=== PATIENT | female | born 1940 | race Caucasian/White ===

== ENCOUNTER → 2016-07-20 | Outpatient (CLI) | payer MEDICARE ==
[~2016-07-20] MED LIST: ALBU2.5V12 IH; ALBU8.5H3 IH; ALPR0.254 PO; AMLO5TAB2 PO; BENA20TA2 PO; CYAN10005 PO; DICY10CA3 PO; ERGO400T PO; FLUT16SP NS; HYDR12.53 PO; HYDR1TAB PO; LEVO750T25 PO; MECL25TA3 PO; PANT40TA3 PO; PRED20TA PO; TIOT18CA IH
--- NOTE | 2016-07-20 14:56 | DIREP ---
PROCEDURE:CHEST 2 VIEWS COMPARISON:[facility], CT, CT-CHEST W CONTRAST, 03/26/2012, 01:28 PM. [facility], CR, XRAY CHEST SINGLE VW, 06/12/2016, 04:24 PM. [facility], CR, XRAY CHEST 2 VWS, 03/17/2015, 02:51 PM. INDICATIONS:R05 COUGH FINDINGS: LUNGS:Hyperinflation, biapical pleural thickening and chronic interstitial changes. Chronic thickening of the right posterior fissure. No focal infiltrate or pleural effusion. CARDIAC:Normal size cardiac silhouette, calcified tortuous aorta, and normal vascularity. MEDIASTINUM:Normal. BONES:Mild thoracic spondylosis. OTHER:No additional findings. CONCLUSION:COPD. No acute cardiopulmonary process or significant change. Dictated by: Malka Schrader MD on 07/20/2016 at 02:50 PM
== END | disposition home or self-care (01) ==
LOC: LAB 14:03
PROVIDERS: ATTEND Nurse Practitioner Family
DX: J44.9 Chronic obstructive pulmonary disease, unspecified (principal); M47.894 Other spondylosis, thoracic region
CPT/HCPCS: 71020

== ENCOUNTER → 2016-10-19 | Outpatient (CLI) | payer MEDICARE | END | disposition home or self-care (01) | LOC: LAB 11:21 | PROVIDERS: ATTEND Internal Medicine Cardiovascular Disease | DX: R60.0 Localized edema (principal) | CPT/HCPCS: 36415; 84436; 84443 ==

== ENCOUNTER 2017-03-25 16:24 | Emergency (ER) | payer MEDICARE ==
[~2017-03-25] VITALS: Ht 160 cm; Wt 59.0 kg
[~2017-03-25 16:24] MED LIST changes: -ALBU8.5H3 IH; +ALBU8.5H7 IH
--- NOTE | 2017-03-25 17:00 | PCM.EKG ---
[facility] Test Date: 2017-03-25 Test Time: 16:51:44 Pat Name: RIDDHI PHILLIPS Department: Room: Gender: F Carder Blankets: RAHEEM : 1940 Requested By: JODEE BENSON Order Number: [id number] Reading MD: Measurements Intervals [place] Rate: 80 P: 72 NC: 166 QRS: 70 QRSD: 78 T: 81 QT: 416 QTc: 479 Interpretive Statements Sinus rhythm with premature atrial complexes Otherwise normal ECG No previous ECG available for comparison Please click the below link to view image of tracing.
--- NOTE | 2017-03-25 17:00 | ER.PDOC ---
General Chief Complaint: Dizziness Stated Complaint: WEAKNESS TRAVEL OUT OF US: No Time seen by MD: 16:46 Source: patient, EMS Exam Limitations: no limitations History of Present Illness Initial Comments weak and dizzy called ems + hx of same Timing/Duration: 1 hour Severity: mild Associated Symptoms: denies symptoms Allergies: Coded Allergies: Sulfa (Sulfonamide Antibiotics) (Verified Allergy, Unknown, 06/29/15) morphine (Verified Allergy, Unknown, 06/29/15) Home Meds Active Scripts Levofloxacin (LEVAQUIN) 750 Mg Tablet, 500 MG PO DAILY, #5 Prov:AUGUSTO SAGASTUME MD 06/14/16 Prednisone (PREDNISONE) 20 Mg Tablet, 40 MG PO DAILY, #10 TABLET Prov:AUGUSTO SAGASTUME MD 06/14/16 Reported Medications Fluticasone Propionate (FLUTICASONE PROPIONATE) 16 Gm [place].susp, 16 GM NS DAILY 01/26/13 Benazepril Hcl (BENAZEPRIL HCL) 20 Mg Tablet, 20 MG PO DAILY 01/26/13 Pantoprazole Sodium (PROTONIX) 40 Mg Tablet.dr, 40 MG PO DAILY 01/26/13 Hydrocodone Bit/Acetaminophen (HYDROCODON-ACETAMINOPH 7.5-500) 1 Each Tablet, 1 EACH PO Q6HR 01/26/13 Alprazolam (ALPRAZOLAM) 0.25 Mg Tablet, 0.25 MG PO PRN 01/26/13 Tiotropium [place] (SPIRIVA) 18 Mcg Cap.w.dev, 18 MCG IH DAILY 01/26/13 Albuterol Sulfate (ALBUTEROL SULFATE) 2.5 Mg/0.5 Ml Vial.neb, 2.5 MG IH Q6HR 01/26/13 Meclizine Hcl (MECLIZINE HCL) 25 Mg Tablet, 25 MG PO TID 01/26/13 Albuterol Sulfate (PROAIR HFA) 8.5 Gm Hfa.aer.ad, 8.5 GM IH PRN 01/26/13 Amlodipine Besylate (AMLODIPINE BESYLATE) 5 Mg Tablet, 5 MG PO DAILY 01/26/13 Dicyclomine Hcl (DICYCLOMINE HCL) 10 Mg Capsule, 10 MG PO BID 01/26/13 Ergocalciferol (Vitamin D2) (VITAMIN D) 400 Unit Tablet, 400 UNIT PO DAILY 01/26/13 Cyanocobalamin (Vitamin B-12) (VITAMIN B-12) 1,000 Mcg Tablet, 1000 MCG PO MONTHLY 01/26/13 Hydrochlorothiazide (HYDROCHLOROTHIAZIDE) 12.5 Mg Capsule, 12.5 MG PO DAILY Y for edema 01/26/13 Past Medical History Medical History: hypertension Surgical History: back, cholecystectomy LMP (females 10-50): postmenopause Family History Significant Family History: no pertinent family hx Social History Smoking: non-smoker, quit greater than 1 year Alcohol Use: none Drug Use: none Review of Systems Constitutional: malaise EENTM: denies blurred vision Respiratory: denies cough Cardiovascular: denies chest pain Gastrointestinal: denies vomiting Musculoskeletal: denies back pain Psychiatric/Neurological: anxiety All Other Systems: Reviewed and Negative Physical Exam General Appearance: Anxious EENT: eyes nml inspection, nml ENT inspection Neck: Non-Tender, Full Range of Motion Respiratory: chest non-tender, lungs clear CVS: reg rate & rhythm, no murmur Gastrointestinal: Normal Bowel Sounds, No Organomegaly Extremities: Normal Range of Motion, Non-Tender 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 Skin: Normal Color, Warm/Dry Lymphatic: No Adenopathy, Axilla Node Tender (R) Results/Orders Results/Orders Laboratory Tests Test 03/25/17 17:06 White Blood Count 14.6 10^3/uL (4.5-11.0) Red Blood Count 3.81 10^6/uL (4.00-5.20) Hemoglobin 10.3 g/dL (12.0-15.0) Hematocrit 33.7 % (36.0-46.0) Mean Corpuscular Volume 88.5 fL (78-100) Mean Corpuscular Hemoglobin 27.0 pg (26-34) Mean Corpuscular Hemoglobin Concent 30.6 g/dL (33-37) Red Cell Distribution Width 14.7 % (11.5-14.5) Platelet Count 263 10^3/uL (150-400) Mean Platelet Volume 9.5 fL (7.8-11.0) Neutrophils (%) (Auto) 81.6 % (41.0-85.0) Lymphocytes (%) (Auto) 11.1 % (24.0-44.0) Monocytes (%) (Auto) 4.9 % (5.0-12.0) Neutrophils # (Auto) 11.9 10^3/uL (1.8-7.7) Lymphocytes # (Auto) 1.6 10^3/uL (1.0-4.8) Monocytes # (Auto) 0.7 10^3/uL (0.3-0.8) Absolute Immature Granulocyte (auto 0.04 10^3 u/L (0-2) Eosinophils % 1.7 % (0.0-5.0) Basophils % 0.4 % (0.0-0.2) Basophils # 0.1 10^3/uL (0.0-0.1) Eosinophil Count 0.3 10^3/uL (0.0-0.2) Sodium Level 139 mmol/L (132-145) Potassium Level 3.0 mmol/L (3.6-5.2) Chloride Level 101.0 mmol/L (96-109) Carbon Dioxide Level 30.7 mmol/L (20.0-32) Anion Gap 10.3 Blood Urea Nitrogen 11 mg/dL (7-18) Creatinine 1.34 mg/dL (0.59-1.40) Estimated GFR () 46.7 (>/=60) BUN/Creatinine Ratio 8.0 Glucose Level 113 mg/dL (70-110) Calcium Level 9.1 mg/dL (8.4-10.5) Total Bilirubin 0.6 mg/dL (0.2-1.0) Aspartate Amino Transf (AST/SGOT) 17 U/L (0-35) Alanine Aminotransferase (ALT/SGPT) 21 U/L (12-78) Alkaline Phosphatase 101 U/L (50-136) Total Creatine Kinase 255 U/L (26-192) Creatine Kinase MB 1.3 ng/mL (0.5-3.6) Troponin I < 0.02 ng/mL (0.00-0.05) Total Protein 7.0 g/dL (6.4-8.2) Albumin 3.7 g/dL (3.4-5.0) Globulin 3.3 Percent Immature Gran (Cell Imm) 0.30 % (0.00-0.50) Progress Progress k+= 3.o spoke with dr dickerson if pt can walk will d/c signed out to dr lantigua ay 2201 EKG/XRAY/CT/US XRAY: chest XRAY Comments: neg CT Comments: ct head neg Departure Time of Disposition: 19:00 Disposition: 30 STILL A PATIENT Impression: Primary Impression: Hypokalemia Condition: Stable Referrals: [facility] CASH ANALYST (PCP) PRIMARY CARE PROVIDER Duration or Time Spent with Pa: 30 JODEE BENSON MD Mar 25, 2017 17:00
[2017-03-25 17:10] LABS: BASOPHIL # 0.1 10^3/uL (0.0-0.1); BASOPHIL % 0.4 % (0.0-0.2); EOSINOPHIL # 0.3 10^3/uL (0.0-0.2); EOSINOPHIL % 1.7 % (0.0-5.0); HEMOGLOBIN 10.3 g/dL (12.0-15.0); LYMPHOCYTES # 1.6 10^3/uL (1.0-4.8); LYMPHOCYTES % 11.1 % (24.0-44.0); MEAN CELL HGB CONCENTRATION 30.6 g/dL (33-37); MEAN CORP VOLUME 88.5 fL (78-100); MEAN PLATELET VOLUME 9.5 fL (7.8-11.0); MONOCYTES # 0.7 10^3/uL (0.3-0.8); MONOCYTES % 4.9 % (5.0-12.0); NEUTROPHIL # 11.9 10^3/uL (1.8-7.7); NEUTROPHILS % 81.6 % (41.0-85.0); RED CELL DISTRIBUTION WIDTH 14.7 % (11.5-14.5); WHITE BLOOD CELL 14.6 10^3/uL (4.5-11.0)
--- NOTE | 2017-03-25 17:20 | DIREP ---
PROCEDURE:CHEST 1 VIEW COMPARISON:[facility], CR, XRAY CHEST 2 VWS, 07/20/2016, 01:53 PM. [facility], CR, XRAY CHEST SINGLE VW, 06/12/2016, 04:24 PM. [facility], CR, XRAY CHEST SINGLE VW, 11/08/2015, 02:02 PM. INDICATIONS:Short of breath FINDINGS: LUNGS/PLEURA:There is pulmonary hyperinflation consistent with underlying COPD. No focal consolidation. No effusions. VASCULATURE:Normal. Unremarkable pulmonary vasculature. CARDIAC:Normal. No cardiac silhouette abnormality or cardiomegaly. MEDIASTINUM:Normal. No visible mass or adenopathy. BONES:Normal. No fracture or visible bony lesion. OTHER:Negative. CONCLUSION:COPD. No definite acute cardiopulmonary abnormalities. Dictated by: Ulysses Ness M.D. on 03/25/2017 at 05:18 PM
[2017-03-25 17:36] LABS: ALANINE AMINOTRANSFERASE 21 U/L (12-78); ALKALINE PHOSPHATASE 101 U/L (50-136); ASPARTATE AMINO TRANSFERASE 17 U/L (0-35); CALCIUM 9.1 mg/dL (8.4-10.5); CARBON DIOXIDE 30.7 mmol/L (20.0-32); GLUCOSE 113 mg/dL (70-110)
--- NOTE | 2017-03-25 17:46 | DIREP ---
PROCEDURE:CT HEAD OR BRAIN W/O CONTRAST COMPARISON:[facility], CT, CT HEAD BRAIN W/O CONTRAST, 11/08/2015, 01:58 PM. INDICATIONS:syncope TECHNIQUE:CT images were created without intravenous contrast. FINDINGS: VENTRICLES:The ventricles are normal in size and configuration. CEREBRUM:Normal cerebral morphology with appropriate quesada white matter differentiation. CEREBELLUM:Negative. BRAINSTEM:Negative. BASAL CISTERNS:Negative. HEMORRHAGE:No MASS LESION:No ACUTE INFARCT:No SKULL:Normal. SINUSES:Normal. OTHER:None CONCLUSION:No acute abnormalities. There is no significant change as compared with the previous examination. Dictated by: Ulysses Ness M.D. on 03/25/2017 at 05:45 PM
--- NOTE | 2017-03-25 18:29 | NUR ---
DR TRELL MacdonaldAMARA TALKING ON PHONE WITH DR CAI.
--- NOTE | 2017-03-25 18:41 | NUR ---
UPDATE PROVIDED PT WITH WATER TO DRINK. PT RESTING ON RIGHT LATERAL SIDE IN BED. PT STATES NO OTHER CONCERNS AT THIS TIME.
[2017-03-25] MEDS ORDERED: NS 1000 ML/KCL 40MEQ 1,000 ML IV ONE ×2 (18:44→19:00)
--- NOTE | 2017-03-25 18:49 | NUR ---
verbal order maddy Sutherland to administer NS w/40meq Potassium at 250cc/hr.
--- NOTE | 2017-03-25 18:50 | NUR ---
HOME O2 PT STATES SHE USES HOME O2 PER NASAL CANNULA
--- NOTE | 2017-03-25 18:59 | NUR ---
TV TURNED ON TO CHANNEL 4 PER PT REQUEST TO WATCH "THE VOICE"
--- NOTE | 2017-03-25 19:52 | NUR ---
PT AMBULATED TO AND FROM THE BATHROOM.
--- NOTE | 2017-03-25 19:55 | NUR ---
UA COLLECTED AND TAKEN TO LAB
[2017-03-25 20:03] LABS: APPEARANCE,URINE CLEAR (CLEAR); BILIRUBIN,URINE NEGATIVE (NEGATIVE); UA COLOR DARK YELLOW (YELLOW); UROBILINOGEN,URINE NORMAL (NEGATIVE)
[2017-03-25 20:05] LABS: WBC,URINE 0-2 WBC/HPF (0-2)
--- NOTE | 2017-03-25 20:46 | NUR ---
DISCHARGE DISCHARGE INSTRUCTIONS DISCUSSED. PT VERBALIZED UNDERSTANDING. ENCOURAGED TO RETURN FOR ANY CONCERNS. PT REQUESTED HER DAUGHTER, OSIRIS, TO BE CONTACTED FOR A RIDE HOME.
--- NOTE | 2017-03-25 20:55 | NUR ---
SPOKE WITH PT'S DAUGHTER BY PHONE, DAUGHTER NOTIFIED OF PT'S REQUEST FOR RIDE HOME. DAUGHTER VERBALIZED SHE WOULD COME GET PT AT THE ER.
[2017-03-25 21:12] VITALS: BP 145/73
--- NOTE | 2017-03-25 21:13 | NUR ---
PT HOME WITH FAMILY MEMBER
== END 2017-03-25 20:46 | disposition home or self-care (01) ==
LOC: ER 16:24 → EDBD 16:24 → ER 20:46
DX: E87.6 Hypokalemia (principal); I10 Essential (primary) hypertension; R42 Dizziness and giddiness; Z90.49 Acquired absence of other specified parts of digestive tract; Z79.899 Other long term (current) drug therapy; Z87.891 Personal history of nicotine dependence; Z88.2 Allergy status to sulfonamides; Z88.5 Allergy status to narcotic agent
CPT/HCPCS: 36415; 70450; 71010; 80053; 81000; 82550; 82553; 84132; 84484; 85025; 93005; 96365; 99285; J3480

== ENCOUNTER → 2017-09-13 | Outpatient (CLI) | payer MEDICARE ==
--- NOTE | 2017-09-13 15:37 | DIREP ---
PROCEDURE:CHEST 2 VIEWS COMPARISON:[facility], CR, XRAY CHEST 2 VWS, 07/20/2016, 01:53 PM. [facility], CR, XRAY CHEST SINGLE VW, 03/25/2017, 04:56 PM. INDICATIONS:R05 COUGH FINDINGS: LUNGS/PLEURA:Hyperinflation with flattening of the diaphragm and mild increased retrosternal airspace. Mild interstitial thickening throughout the bilateral hemithoraces with relative paucity of lung markings within the left upper hemithorax. Findings are similar to the previous study and would suggest underlying COPD/emphysema. Subtle opacity within the right upper lobe appears fairly similar to the previous study and may reflect atelectasis, scarring or potential subtle infiltrate in the appropriate clinical setting. No pleural effusion or pneumothorax is identified. VASCULATURE:Normal. Unremarkable pulmonary vasculature. CARDIAC:Normal. No cardiac silhouette abnormality or cardiomegaly. MEDIASTINUM:Mediastinal contours are within normal limits with calcifications of the aorta. BONES:Minimal degenerative changes of the thoracic spine. No acute abnormality. OTHER:Previous cholecystectomy. CONCLUSION: 1. COPD/emphysema. Subtle opacity within the right upper lobe may reflect atelectasis, scarring or potential subtle infiltrate in the appropriate clinical setting. This does appear relatively similar to the previous studies from 03/25/2017 and 07/20/2016 which would favor atelectasis or scarring. Dictated by: Jimmie Ruiz M.D. On 09/13/2017 at 03:32 PM
== END | disposition home or self-care (01) ==
LOC: RAD 14:55
PROVIDERS: ATTEND Nurse Practitioner Family
DX: J44.9 Chronic obstructive pulmonary disease, unspecified (principal); M47.894 Other spondylosis, thoracic region; Z90.49 Acquired absence of other specified parts of digestive tract
CPT/HCPCS: 71046

== ENCOUNTER 2017-11-03 17:59 | Emergency (ER) | payer MEDICARE ==
[~2017-11-03] VITALS: Ht 165.1 cm; Wt 83.9 kg
[2017-11-03 18:05] VITALS: BP 187/97
--- NOTE | 2017-11-03 18:25 | PCM.EKG ---
[facility] Test Date: 2017-11-03 Test Time: 18:07:45 Pat Name: RIDDHI PHILLIPS Department: Room: Gender: F Counter Manager: : 1940 Requested By: EVA CLANCY Order Number: [id number] Reading MD: Eva CLANCY Measurements Intervals [place] Rate: 103 P: 84 MA: 166 QRS: 62 QRSD: 72 T: 73 QT: 360 QTc: 471 Interpretive Statements Sinus tachycardia with premature supraventricular complexes Otherwise normal ECG Compared to ECG 03/25/2017 16:51:44 Sinus rhythm no longer present Electronically Signed On 11-03-2017 18:47:34 CDT by Eva CLANCY Please click the below link to view image of tracing.
[2017-11-03] MEDS ORDERED: SUBLIMAZE IV STA (18:38)
[2017-11-03] MEDS ORDERED: TRANDATE IV STA (18:38)
--- NOTE | 2017-11-03 18:46 | ER.PDOC ---
General Chief Complaint: Chest Pain-Cardiac Nature Stated Complaint: CHEST PAIN Time seen by MD: 18:40 Source: patient Exam Limitations: no limitations History of Present Illness Initial Comments Mid lower retrosternal chest pain after choking while eating. Timing/Duration: 1 hour Severity/Quality: moderate Radiation: no radiation Prior CP/Workup: No Prior Chest Pain Nitro Today/Relief: 0.4 mg x 1 Aspirin Today: 325 mg x 1, Provided By EMS Associated Symptoms: denies symptoms Allergies: Coded Allergies: Sulfa (Sulfonamide Antibiotics) (Verified Allergy, Unknown, 06/29/15) morphine (Verified Allergy, Unknown, 06/29/15) Home Meds Active Scripts Levofloxacin (LEVAQUIN) 750 Mg Tablet, 500 MG PO DAILY, #5 Prov:AUGUSTO SAGASTUME MD 06/14/16 Prednisone (PREDNISONE) 20 Mg Tablet, 40 MG PO DAILY, #10 TABLET Prov:AUGUSTO SAGASTUME MD 06/14/16 Reported Medications Fluticasone Propionate (FLUTICASONE PROPIONATE) 16 Gm [place].susp, 16 GM NS DAILY 01/26/13 Benazepril Hcl (BENAZEPRIL HCL) 20 Mg Tablet, 20 MG PO DAILY 01/26/13 Pantoprazole Sodium (PROTONIX) 40 Mg Tablet.dr, 40 MG PO DAILY 01/26/13 Hydrocodone Bit/Acetaminophen (HYDROCODON-ACETAMINOPH 7.5-500) 1 Each Tablet, 1 EACH PO Q6HR 01/26/13 Alprazolam (ALPRAZOLAM) 0.25 Mg Tablet, 0.25 MG PO PRN 01/26/13 Tiotropium [place] (SPIRIVA) 18 Mcg Cap.w.dev, 18 MCG IH DAILY 01/26/13 Albuterol Sulfate (ALBUTEROL SULFATE) 2.5 Mg/0.5 Ml Vial.neb, 2.5 MG IH Q6HR 01/26/13 Meclizine Hcl (MECLIZINE HCL) 25 Mg Tablet, 25 MG PO TID 01/26/13 Albuterol Sulfate (PROAIR HFA) 8.5 Gm Hfa.aer.ad, 8.5 GM IH PRN 01/26/13 Amlodipine Besylate (AMLODIPINE BESYLATE) 5 Mg Tablet, 5 MG PO DAILY 01/26/13 Dicyclomine Hcl (DICYCLOMINE HCL) 10 Mg Capsule, 10 MG PO BID 01/26/13 Ergocalciferol (Vitamin D2) (VITAMIN D) 400 Unit Tablet, 400 UNIT PO DAILY 01/26/13 Cyanocobalamin (Vitamin B-12) (VITAMIN B-12) 1,000 Mcg Tablet, 1000 MCG PO MONTHLY 01/26/13 Hydrochlorothiazide (HYDROCHLOROTHIAZIDE) 12.5 Mg Capsule, 12.5 MG PO DAILY PRN for edema 01/26/13 Past Medical History Medical History: COPD, hypertension Surgical History: cardiac cath Social History Smoking: non-smoker Alcohol Use: none Drug Use: none Constitutional: no symptoms reported EENTM: no symptoms reported Respiratory: no symptoms reported Cardiovascular: see HPI Gastrointestinal: no symptoms reported Genitourinary: no symptoms reported Musculoskeletal: no symptoms reported All Other Systems: Reviewed and Negative Physical Exam General Appearance: No Apparent Distress, WD/WN HEENT: PERRL/EOMI, Normal ENT Inspection, TMs Normal, Pharynx Normal Neck: Non-Tender, Full Range of Motion, Supple, Normal Inspection Respiratory: chest non-tender, lungs clear, normal breath sounds, no respiratory distress, no accessory muscle use Cardiovascular: Normal Peripheral Pulses, Regular Rate, Rhythm, No Edema, No Gallop, No JVD, No Murmur Gastrointestinal: Normal Bowel Sounds, No Organomegaly, No Pulsatile Mass, Non Tender, Soft Extremities: Normal Range of Motion, Non-Tender, Normal Inspection, No Pedal Edema, No Calf Tenderness, Normal Capillary Refill 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 Bullock at 7pm. Care assumed from Dr. Tavares at 1900 hrs. Labs, EKG reviewed. Pt states persistent mid back and lower substernal pain. Better after Archie. VSS. Repeat troponin ). Repeat EKG unchanged. EKG/XRAY/CT/US EKG Comments: sinus tachycardia Departure Time of Disposition: 21:44 Disposition: 01 HOME, SELF-CARE Impression: Primary Impression: Chest pain Additional Impression: Esophagitis, acute Condition: Stable Patient Instructions: Esophagitis Referrals: [facility] GRADUATE ASSISTANT ATHLETIC TRAINER (PCP) PRIMARY CARE PROVIDER Additional Instructions: Continue Tums or Maalox 4 times a day with meals and at bedtime. Liquid or soft diet. Return if worse. See your doctor in 1 to 2 days for recheck. Duration or Time Spent with Pa: 120 Problem Qualifiers EVA CLANCY MD Nov 03, 2017 18:46 ISA BULLOCK DO Nov 03, 2017 21:47
[2017-11-03 19:06] LABS: BASOPHIL % 0.3 % (0.0-0.2); EOSINOPHIL # 0.2 10^3/uL (0.0-0.2); EOSINOPHIL % 1.5 % (0.0-5.0); LYMPHOCYTES # 1.2 10^3/uL (1.0-4.8); LYMPHOCYTES % 10.1 % (24.0-44.0); MEAN CELL HGB 28.6 pg (26-34); MEAN CELL HGB CONCENTRATION 32.6 g/dL (33-37); MEAN CORP VOLUME 87.8 fL (78-100); MEAN PLATELET VOLUME 8.5 fL (7.8-11.0); MONOCYTES # 0.5 10^3/uL (0.3-0.8); MONOCYTES % 4.3 % (5.0-12.0); NEUTROPHIL # 10.3 10^3/uL (1.8-7.7); NEUTROPHILS % 83.5 % (41.0-85.0); RED CELL DISTRIBUTION WIDTH 15.3 % (11.5-14.5); WHITE BLOOD CELL 12.3 10^3/uL (4.5-11.0)
--- NOTE | 2017-11-03 19:18 | DIREP ---
PROCEDURE:CHEST 1 VIEW COMPARISON:[facility], CR, XRAY CHEST 2 VWS, 09/13/2017, 02:49 PM. INDICATIONS:Chest pain FINDINGS: LUNGS/PLEURA:Lungs are mildly hyperexpanded consistent with COPD. Scarring in the right upper lobe. No pneumonia, heart failure or effusions are seen. No pneumothorax, pneumomediastinum, aortic aneurysm or mediastinal widening is seen. VASCULATURE:Normal. Unremarkable pulmonary vasculature. CARDIAC:Normal. No cardiac silhouette abnormality or cardiomegaly. MEDIASTINUM:Normal. No visible mass or adenopathy. BONES:Normal. No fracture or visible bony lesion. OTHER:Negative. CONCLUSION:COPD noted. Scarring in the right upper lobe. No active disease. Dictated by: Miguel Man MD on 11/03/2017 at 07:17 PM
[2017-11-03 19:34] LABS: ALANINE AMINOTRANSFERASE(ML) 16 U/L (12-78); ALKALINE PHOSPHATASE 94 U/L (50-136); ASPARTATE AMINO TRANSFERASE 18 U/L (0-35); CALCIUM 9.1 mg/dL (8.4-10.5); GLUCOSE 120 mg/dL (70-110)
[2017-11-03] MEDS ORDERED: NORCO 5MG PO STA (20:21)
[2017-11-03] MEDS ORDERED: NORCO 5MG PO ONE (20:23)
[2017-11-03] MEDS ORDERED: DUONEB 0.5 MG-3 MG/3 ML SOLN IH ONE (20:42)
[2017-11-03] MEDS ORDERED: DUONEB 0.5 MG-3 MG/3 ML SOLN IH STA (20:44)
--- NOTE | 2017-11-03 20:47 | PCM.EKG ---
[facility] Test Date: 2017-11-03 Test Time: 20:46:49 Pat Name: RIDDHI PHILLIPS Department: Room: Gender: F Ornamental Ironworker: LT : 1940 Requested By: ISA RYAN Order Number: [id number] Reading MD: Isa Ryan Measurements Intervals [place] Rate: 85 P: 96 [place]: 164 QRS: 78 QRSD: 78 T: 77 QT: 384 QTc: 456 Interpretive Statements Sinus rhythm with premature supraventricular complexes Nonspecific ST abnormality Abnormal ECG Compared to ECG 11/03/2017 18:07:45 ST (T wave) deviation now present Sinus tachycardia no longer present Electronically Signed On 11-05-2017 3:55:42 CDT by Isa Ryan Please click the below link to view image of tracing.
[2017-11-03 22:13] VITALS: BP 187/97
== END 2017-11-03 22:00 | disposition home or self-care (01) ==
LOC: EDBD 17:59 → ER 17:59
DX: K20.9 Esophagitis, unspecified (principal); I10 Essential (primary) hypertension; J44.9 Chronic obstructive pulmonary disease, unspecified; Z95.818 Presence of other cardiac implants and grafts; Z88.2 Allergy status to sulfonamides; Z88.5 Allergy status to narcotic agent; Z79.899 Other long term (current) drug therapy
CPT/HCPCS: 36415; 71045; 80053; 82550; 82553; 84484 ×2; 85025; 85610; 85730; 93005 ×2; 94640; 96374; 96375; 99285; J7620

== ENCOUNTER 2017-12-07 18:44 | Emergency (ER) | payer MEDICARE ==
[~2017-12-07] VITALS: Ht 157.5 cm; Wt 59.0 kg
[2017-12-07 18:56] VITALS: BP 138/64
[2017-12-07] MEDS ORDERED: FOLI1TAB21 PO (19:14)
[2017-12-07] MEDS ORDERED: NITROSTAT SL STA (19:20)
--- NOTE | 2017-12-07 19:20 | NUR ---
VERBAL VERBAL ORDER FOR NITRO SPRAY X1 BY DR. RENEE. SPRAY GIVEN AT THIS TIME.
[2017-12-07] MEDS ORDERED: FERR325T15 PO (19:21)
[2017-12-07] MEDS ORDERED: ASPI-484 PO (19:21)
[2017-12-07] MEDS ORDERED: BECL8.7A6 IH (19:21)
--- NOTE | 2017-12-07 19:25 | ER.PDOC ---
General Chief Complaint: General Complaint Stated Complaint: FOREIGN BODY TRAVEL OUT OF US: Yes Time seen by MD: 19:22 Source: patient Exam Limitations: no limitations History of Present Illness Initial Comments 77 year old white female with foreign body sensation, esophagus. Was eating chicken when she suddenly could not swallow anymore with regurgitation. Incident happened less than an hour ago. Similar episode less than a month ago was addressed by Dr. Connolly. Glucagon and Ativan did not help Timing/Duration: 1 hour Severity: moderate Allergies: Coded Allergies: Sulfa (Sulfonamide Antibiotics) (Verified Allergy, Unknown, 06/29/15) morphine (Verified Allergy, Unknown, 06/29/15) Home Meds Active Scripts Levofloxacin (LEVAQUIN) 750 Mg Tablet, 500 MG PO DAILY, #5 Prov:AUGUSTO SAGASTUME MD 06/14/16 Prednisone (PREDNISONE) 20 Mg Tablet, 40 MG PO DAILY, #10 TABLET Prov:AUGUSTO SAGASTUME MD 06/14/16 Reported Medications Beclomethasone Dipropionate (QVAR) 8.7 Gm Aer.w.adap, 2 PUFF IH BID, #8.7 GRAM 3 Refills 12/07/17 Ferrous Sulfate (FERROUS SULFATE) 325 Mg Tablet, 325 MG PO Q48H, TABLET 12/07/17 Aspirin (ASPIR 81) 81 Mg Tablet.dr, 81 MG PO DAILY24 12/07/17 Folic Acid (FOLIC ACID) 1 Mg Tablet, 0.4 MG PO DAILY24, TABLET 12/07/17 Fluticasone Propionate (FLUTICASONE PROPIONATE) 16 Gm [place].susp, 16 GM NS DAILY 01/26/13 Benazepril Hcl (BENAZEPRIL HCL) 20 Mg Tablet, 20 MG PO DAILY 01/26/13 Pantoprazole Sodium (PROTONIX) 40 Mg Tablet.dr, 40 MG PO DAILY 01/26/13 Hydrocodone Bit/Acetaminophen (HYDROCODON-ACETAMINOPH 7.5-500) 1 Each Tablet, 1 EACH PO Q6HR 01/26/13 Alprazolam (ALPRAZOLAM) 0.25 Mg Tablet, 0.25 MG PO PRN 01/26/13 Albuterol Sulfate (ALBUTEROL SULFATE) 2.5 Mg/0.5 Ml Vial.neb, 2.5 MG IH Q6HR 01/26/13 Meclizine Hcl (MECLIZINE HCL) 25 Mg Tablet, 25 MG PO TID 01/26/13 Albuterol Sulfate (PROAIR HFA) 8.5 Gm Hfa.aer.ad, 8.5 GM IH PRN 01/26/13 Amlodipine Besylate (AMLODIPINE BESYLATE) 5 Mg Tablet, 5 MG PO DAILY 01/26/13 Dicyclomine Hcl (DICYCLOMINE HCL) 10 Mg Capsule, 10 MG PO BID 01/26/13 Ergocalciferol (Vitamin D2) (VITAMIN D) 400 Unit Tablet, 400 UNIT PO DAILY 01/26/13 Cyanocobalamin (Vitamin B-12) (VITAMIN B-12) 1,000 Mcg Tablet, 1000 MCG PO MONTHLY 01/26/13 Hydrochlorothiazide (HYDROCHLOROTHIAZIDE) 12.5 Mg Capsule, 12.5 MG PO DAILY PRN for edema 01/26/13 Discontinued Reported Medications Tiotropium [place] (SPIRIVA) 18 Mcg Cap.w.dev, 18 MCG IH DAILY 01/26/13 Past Medical History Medical History: cancer, COPD, hypertension, other Surgical History: back, cancer surgery, cholecystectomy, tonsillectomy, tubal LMP (females 10-50): postmenopause Social History Smoking: non-smoker Alcohol Use: none Drug Use: none Review of Systems Constitutional: no symptoms reported EENTM: see HPI Respiratory: no symptoms reported Cardiovascular: no symptoms reported Gastrointestinal: see HPI Genitourinary: no symptoms reported Musculoskeletal: no symptoms reported Skin: no symptoms reported Psychiatric/Neurological: no symptoms reported Hematologic/Lymphatic: no symptoms reported Immunological/Allergic: no symptoms reported Physical Exam General Appearance: WD/WN, Anxious EENT: eyes nml inspection, nml ENT inspection, pharynx nml Neck: Non-Tender, Full Range of Motion, Supple, Normal Inspection Respiratory: chest non-tender, lungs clear, normal breath sounds, no respiratory distress, no accessory muscle use CVS: reg rate & rhythm, no murmur, pulses nml, nml capillary refill Gastrointestinal: Normal Bowel Sounds, No Organomegaly, No Pulsatile Mass, Non Tender Rectal: Normal Exam Back: Normal Inspection, No CVA Tenderness, No Vertebral Tenderness Extremities: Normal Range of Motion, Non-Tender, Normal Inspection 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, No Motor/Sensory Deficits, Alert, Oriented x 3 Skin: Normal Color, Warm/Dry Lymphatic: No Adenopathy Results/Orders Results/Orders Laboratory Tests Test 12/07/17 19:40 White Blood Count 25.0 10^3/uL (4.5-11.0) Red Blood Count 3.82 10^6/uL (4.00-5.20) Hemoglobin 11.1 g/dL (12.0-15.0) Hematocrit 34.4 % (36.0-46.0) Mean Corpuscular Volume 90.1 fL (78-100) Mean Corpuscular Hemoglobin 29.1 pg (26-34) Mean Corpuscular Hemoglobin Concent 32.3 g/dL (33-37) Red Cell Distribution Width 15.5 % (11.5-14.5) Platelet Count 331 10^3/uL (150-400) Mean Platelet Volume 8.8 fL (7.8-11.0) Neutrophils (%) (Auto) 85.3 % (41.0-85.0) Lymphocytes (%) (Auto) 7.8 % (24.0-44.0) Monocytes (%) (Auto) 4.8 % (5.0-12.0) Neutrophils # (Auto) 21.3 10^3/uL (1.8-7.7) Lymphocytes # (Auto) 2.0 10^3/uL (1.0-4.8) Monocytes # (Auto) 1.2 10^3/uL (0.3-0.8) Absolute Immature Granulocyte (auto 0.11 10^3 u/L (0-2) Eosinophils % 1.4 % (0.0-5.0) Basophils % 0.3 % (0.0-0.2) Basophils # 0.1 10^3/uL (0.0-0.1) Eosinophil Count 0.4 10^3/uL (0.0-0.2) Prothrombin Time 10.4 SEC (9.8-11.9) Prothrombin Time INR (Non-Therap) 1.0 Activated Partial Thromboplast Time 25.7 SEC (24.67-30.72) Sodium Level 137 mmol/L (132-145) Potassium Level 3.3 mmol/L (3.6-5.2) Chloride Level 101.0 mmol/L (96-109) Carbon Dioxide Level 25.1 mmol/L (20.0-32) Anion Gap 14.2 Blood Urea Nitrogen 10 mg/dL (7-18) Creatinine 1.19 mg/dL (0.59-1.40) Estimated GFR () 53.5 (>/=60) BUN/Creatinine Ratio 8.0 Glucose Level 118 mg/dL (70-110) Calcium Level 8.4 mg/dL (8.4-10.5) Total Bilirubin 0.5 mg/dL (0.2-1.0) Aspartate Amino Transf (AST/SGOT) 19 U/L (0-35) Alanine Aminotransferase (ALT/SGPT) 15 U/L (12-78) Alkaline Phosphatase 94 U/L (50-136) Creatine Kinase MB 3.1 ng/mL (0.5-3.6) Troponin I < 0.02 ng/mL (0.00-0.05) Pro-B-Type Natriuretic Peptide 162 pg/mL (0-450) Total Protein 7.0 g/dL (6.4-8.2) Albumin 3.6 g/dL (3.4-5.0) Globulin 3.4 Thyroid Stimulating Hormone (TSH) 2.319 mIU/mL (0.358-3.740) Percent Immature Gran (Cell Imm) 0.40 % (0.00-0.50) Administered Medications Medications (Trade) Dose Ordered Sig/Evelio Route PRN Reason Start Time Stop Time Status Last Admin Dose Admin Nitroglycerin (Nitrostat) 0.4 mg OT STAT SL 12/07/17 19:20 12/07/17 19:22 DC 12/07/17 19:20 Albuterol/ Ipratropium (Duoneb 0.5 Mg-3 Mg/3 ml Soln) 3 ml STAT STAT IH 12/07/17 20:21 12/07/17 20:23 DC 12/07/17 20:40 Lorazepam (Ativan) 0.5 mg STAT STAT IV 12/07/17 20:21 12/07/17 20:23 DC 12/07/17 20:40 Progress Progress Tolerate water without any difficulty after a dose of SL NTG Feels more relax after a dose of Ativan Repeat EKG showed PAC Course Sepsis Screening Results: Posi: POSITIVE SEPSIS RISK Vitals & review Data Vital Sign - Last 24 Hours 11/03/17 12/07/17 12/07/17 12/07/17 22:13 18:45 18:45 18:56 Temp 98.4 98.4 98.4 98.4 98.4 98.4 Pulse 75 103 106 106 Resp 18 18 18 B/P (MAP) 138/64 (88) Pulse Ox 96 96 O2 Delivery Nasal Canula Nasal Canula 12/07/17 12/07/17 20:41 20:47 Pulse 100 99 Resp 18 18 Pulse Ox 98 97 Laboratory Tests Test 12/07/17 19:40 White Blood Count 25.0 10^3/uL Red Blood Count 3.82 10^6/uL Hemoglobin 11.1 g/dL Hematocrit 34.4 % Mean Corpuscular Volume 90.1 fL Mean Corpuscular Hemoglobin 29.1 pg Mean Corpuscular Hemoglobin Concent 32.3 g/dL Red Cell Distribution Width 15.5 % Platelet Count 331 10^3/uL Mean Platelet Volume 8.8 fL Neutrophils (%) (Auto) 85.3 % Lymphocytes (%) (Auto) 7.8 % Monocytes (%) (Auto) 4.8 % Neutrophils # (Auto) 21.3 10^3/uL Lymphocytes # (Auto) 2.0 10^3/uL Monocytes # (Auto) 1.2 10^3/uL Absolute Immature Granulocyte (auto 0.11 10^3 u/L Eosinophils % 1.4 % Basophils % 0.3 % Basophils # 0.1 10^3/uL Eosinophil Count 0.4 10^3/uL Prothrombin Time 10.4 SEC Prothrombin Time INR (Non-Therap) 1.0 Activated Partial Thromboplast Time 25.7 SEC Sodium Level 137 mmol/L Potassium Level 3.3 mmol/L Chloride Level 101.0 mmol/L Carbon Dioxide Level 25.1 mmol/L Anion Gap 14.2 Blood Urea Nitrogen 10 mg/dL Creatinine 1.19 mg/dL Estimated GFR () 53.5 BUN/Creatinine Ratio 8.0 Glucose Level 118 mg/dL Calcium Level 8.4 mg/dL Total Bilirubin 0.5 mg/dL Aspartate Amino Transf (AST/SGOT) 19 U/L Alanine Aminotransferase (ALT/SGPT) 15 U/L Alkaline Phosphatase 94 U/L Creatine Kinase MB 3.1 ng/mL Troponin I < 0.02 ng/mL Pro-B-Type Natriuretic Peptide 162 pg/mL Total Protein 7.0 g/dL Albumin 3.6 g/dL Globulin 3.4 Thyroid Stimulating Hormone (TSH) 2.319 mIU/mL Percent Immature Gran (Cell Imm) 0.40 % Departure Time of Disposition: 21:59 Disposition: 01 HOME, SELF-CARE Impression: Primary Impression: Foreign body alimentary tract Qualified Codes: T18.9XXA - Foreign body of alimentary tract, part unspecified , initial encounter Additional Impressions: Anxiety Leukocytosis Qualified Codes: D72.829 - Elevated white blood cell count, unspecified Condition: Stable Referrals: [facility] (PCP) PRIMARY CARE PROVIDER Comments Augmentin RTER prn Follow up PCP Duration or Time Spent with Pa: 60 SANDOR RENEE MD Dec 07, 2017 19:25
--- NOTE | 2017-12-07 19:40 | NUR ---
KADEN SAGASTUME JUST STATED HE INFORMED DR. ALFONSO OF PT. STATES DR. ALFONSO WILL BE BY LATER TO SEE PT.
[2017-12-07 19:44] LABS: BASOPHIL # 0.1 10^3/uL (0.0-0.1); BASOPHIL % 0.3 % (0.0-0.2); EOSINOPHIL # 0.4 10^3/uL (0.0-0.2); EOSINOPHIL % 1.4 % (0.0-5.0); HEMOGLOBIN 11.1 g/dL (12.0-15.0); LYMPHOCYTES % 7.8 % (24.0-44.0); MEAN CELL HGB 29.1 pg (26-34); MEAN CELL HGB CONCENTRATION 32.3 g/dL (33-37); MEAN CORP VOLUME 90.1 fL (78-100); MEAN PLATELET VOLUME 8.8 fL (7.8-11.0); MONOCYTES # 1.2 10^3/uL (0.3-0.8); MONOCYTES % 4.8 % (5.0-12.0); NEUTROPHIL # 21.3 10^3/uL (1.8-7.7); NEUTROPHILS % 85.3 % (41.0-85.0); RED CELL DISTRIBUTION WIDTH 15.5 % (11.5-14.5)
--- NOTE | 2017-12-07 19:56 | PCM.EKG ---
[facility] Test Date: 2017-12-07 Test Time: 19:59:14 Pat Name: RIDDHI PHILLIPS Department: Room: Gender: F General Clerk: YESSENIA : 1940 Requested By: SANDOR RENEE Order Number: [id number] Reading MD: Measurements Intervals [place] Rate: 96 P: MA: QRS: -3 QRSD: 68 T: 60 QT: 402 QTc: 507 Interpretive Statements Atrial fibrillation Nonspecific ST and T wave abnormality, probably digitalis effect Prolonged QT Abnormal ECG Compared to ECG 11/03/2017 20:46:49 Prolonged QT interval now present Sinus rhythm no longer present Atrial premature complex(es) no longer present ST (T wave) deviation still present Please click the below link to view image of tracing.
[2017-12-07 20:01] LABS: CALCIUM 8.4 mg/dL (8.4-10.5); CARBON DIOXIDE 25.1 mmol/L (20.0-32)
--- NOTE | 2017-12-07 20:15 | DIREP ---
PROCEDURE:CHEST 1 VIEW COMPARISON:[facility], CR, XRAY CHEST SINGLE VW, 11/03/2017, 06:39 PM. INDICATIONS:foreign body esophagus FINDINGS: LUNGS/PLEURA:No significant pulmonary parenchymal abnormalities. No effusions. VASCULATURE:Normal. Unremarkable pulmonary vasculature. CARDIAC:Normal. No cardiac silhouette abnormality or cardiomegaly. MEDIASTINUM:Normal. No visible mass or adenopathy. BONES:Normal. No fracture or visible bony lesion. OTHER:Negative. CONCLUSION:No radiopaque foreign body is identified. No acute process, or significant interval change Dictated by: Martin Hadley MD on 12/07/2017 at 08:13 PM
[2017-12-07] MEDS ORDERED: ATIVAN IV STA (20:21)
[2017-12-07] MEDS ORDERED: DUONEB 0.5 MG-3 MG/3 ML SOLN IH STA (20:21)
[2017-12-07] MEDS ORDERED: ATIVAN ONE (20:33)
[2017-12-07] MEDS ORDERED: DUONEB 0.5 MG-3 MG/3 ML SOLN IH ONE (20:34)
--- NOTE | 2017-12-07 20:38 | NUR ---
RT HANG, RT IN ROOM FOR BREATHING TREATMENT AT THIS TIME.
--- NOTE | 2017-12-07 20:51 | NUR ---
UPDATE PT STATES "I'M FEELING BETTER NOW AFTER THAT TREATMENT. IT DOESN'T FEEL WEIRD."
--- NOTE | 2017-12-07 21:45 | PCM.EKG ---
[facility] Test Date: 2017-12-07 Test Time: 21:49:07 Pat Name: RIDDHI PHILLIPS Department: Room: Gender: F Director Of Respiratory Therapy: YESSENIA : 1940 Requested By: SANDOR RENEE Order Number: [id number] Reading MD: Measurements Intervals [place] Rate: 99 P: 54 SD: 164 QRS: 14 QRSD: 72 T: 32 QT: 372 QTc: 477 Interpretive Statements Sinus rhythm with premature atrial complexes Otherwise normal ECG Compared to ECG 11/03/2017 20:46:49 ST (T wave) deviation no longer present Please click the below link to view image of tracing.
[2017-12-07] MEDS ORDERED: AUGMENTIN 875-125 TABLET PO STA (21:52)
[2017-12-07] MEDS ORDERED: AUGMENTIN 875-125 TABLET ONE (22:08)
[2017-12-07 22:27] VITALS: BP 138/64
== END 2017-12-07 22:26 | disposition home or self-care (01) ==
LOC: EDBD 18:44 → ER 18:44
DX: T18.9XXA Foreign body of alimentary tract, part unspecified, initial encounter (principal); F41.9 Anxiety disorder, unspecified; D72.829 Elevated white blood cell count, unspecified; J44.9 Chronic obstructive pulmonary disease, unspecified; I10 Essential (primary) hypertension; R71.0 Precipitous drop in hematocrit; R79.9 Abnormal finding of blood chemistry, unspecified; Z79.82 Long term (current) use of aspirin; Z79.899 Other long term (current) drug therapy; Z88.2 Allergy status to sulfonamides; Z88.5 Allergy status to narcotic agent; Z98.51 Tubal ligation status; Z90.89 Acquired absence of other organs; Z90.49 Acquired absence of other specified parts of digestive tract; Z98.890 Other specified postprocedural states; X58.XXXA Exposure to other specified factors, initial encounter; Y93.89 Activity, other specified; Y92.89 Other specified places as the place of occurrence of the external cause; Y99.8 Other external cause status
CPT/HCPCS: 36415; 71045; 80053; 82553; 83880; 84443; 84484; 85025; 85610; 85730; 87040 ×2; 93005 ×2; 94640; 96374; 99285; J2060; J7620

== ENCOUNTER → 2018-08-12 | Outpatient (CLI) | payer MEDICARE ==
[~2018-08-12] MED LIST changes: +AMLO5TAB10 PO; -AMLO5TAB2 PO; +ASPI-484 PO; +BECL8.7A6 IH; -BENA20TA2 PO; +BENA20TA4 PO; +FERR325T15 PO; +FOLI1TAB21 PO
--- NOTE | 2018-08-12 15:43 | DIREP ---
PROCEDURE:XR ABDOMEN 2 VIEWS COMPARISON:None. INDICATIONS:K59.00 CONSTIPATION TECHNIQUE:Flat and upright views of the abdomen are provided. FINDINGS: BOWEL GAS PATTERN:Two views of the abdomen, supine and upright. Bowel gas pattern is nonspecific and nonobstructive. [id number] amount of retained fecal matter in the colon. Status post cholecystectomy. CALCIFICATIONS:None significant. Calcifications in the right gluteal region may represent injection granulomas. Smaller calcifications are also seen on the left side. No organomegaly or urinary tract calcifications are seen. LUNG BASES:Clear. BONES:Normal. OTHER:No additional findings. CONCLUSION:Mild constipation. Status post cholecystectomy. No small bowel obstruction is seen. Dictated by: Miguel Man MD on 08/12/2018 at 03:42 PM
== END | disposition home or self-care (01) ==
LOC: RAD 15:09
PROVIDERS: ATTEND Nurse Practitioner Family
DX: K59.00 Constipation, unspecified (principal); Z90.49 Acquired absence of other specified parts of digestive tract
CPT/HCPCS: 74019

== ENCOUNTER → 2018-08-15 | Outpatient (CLI) | payer MEDICARE ==
--- NOTE | 2018-08-15 10:15 | DIREP ---
PROCEDURE:CT ABDOMEN/PELVIS W + W/O CONTRAST COMPARISON:[facility], CT, CT-ABDOMEN /PELVIS W W/O CONTRAST, 03/26/2013, 08:40 AM. [facility], US, US AORTA COMPLETE STUDY, 07/05/2015, 09:19 AM. INDICATIONS:K59.00 CONSTIPATION TECHNIQUE:Axial images were created through the abdomen and pelvis with and without intravenous contrast material. Oral contrast was administered. Sagittal and coronal reconstructions were performed from source images. FINDINGS: LUNG BASES:Mild to moderate emphysematous changes both bases. No infiltrate or effusion. LIVER:Normal. No significant liver lesions are identified. BILIARY:Cholecystectomy PANCREAS:Normal. No lesion, fluid collection, ductal dilatation, or atrophy. SPLEEN:Normal. No enlargement or focal lesion. ADRENALS:Normal. No mass or enlargement. URINARY TRACT:Bilateral renal cysts, the largest 2.8 cm in diameter upper mid left is unchanged from 2013. 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 Infrarenal distal abdominal aortic aneurysm 3.2 cm in maximum diameter, unchanged from ultrasound measurement 2016. RETROPERITONEUM:Normal. No mass or adenopathy. BOWEL/MESENTERY:Normal small bowel, no dilated loops. Normal appendix right lower quadrant. Stool in the left colon, not dilated. Mild sigmoid diverticulosis, no focal signs of diverticulitis. ABDOMINAL WALL:Normal. No mass or hernia. PELVIC ORGANS:Normal. No visible mass. Pelvic organs appropriate for patient age. BONES:Lumbar spondylosis with narrowing of the intervertebral disc space at L5-S1, no compression fractures. OTHER:Negative. 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 Infrarenal abdominal aortic aneurysm 3.2 cm in diameter, unchanged. Normal small bowel. Normal appendix. Diverticulosis of the sigmoid colon, no focal signs of diverticulitis. Dictated by: Joel Renee MD on 08/15/2018 at 10:04 AM
== END | disposition home or self-care (01) ==
LOC: RAD 08:46
PROVIDERS: ATTEND Nurse Practitioner Family
DX: K57.30 Diverticulosis of large intestine without perforation or abscess without bleeding (principal); I77.810 Thoracic aortic ectasia
CPT/HCPCS: 36415; 74178; 82565; Q9965

== ENCOUNTER → 2018-09-24 | Outpatient (CLI) | payer MEDICARE ==
--- NOTE | 2018-09-24 14:14 | DIREP ---
PROCEDURE:Digital Screening Mammogram TECHNIQUE:MLO and CC digital images of each breast are provided. Computer Assisted Detection (CAD) was utilized. COMPARISON:[facility], , MAMMO BILATERAL SCREENING, 02/27/2010, 08:55 AM. INDICATIONS:SCREENING BREAST COMPOSITION:There are scattered areas of fibroglandular density. FINDINGS:There are no grouped microcalcifications, masses, or architectural distortions to suggest malignancy. There is no significant change as compared with the previous examination(s). IMPRESSION:No mammographic evidence of malignancy. RECOMMENDATIONS:Routine Screening Mammography per [employer] guidelines. OVERALL FINAL ASSESSMENT:BI-RADS 1 - Negative Mammogram Note: This facility participates in a mammography screening patient reminder system. Dictated by: Ulysses Ness M.D. on 09/24/2018 at 02:11 PM
--- NOTE | 2018-09-24 15:52 | DIREP ---
PROCEDURE:CHEST 2 VIEWS COMPARISON:CT, CT-CHEST W CONTRAST, 03/26/2012, 01:28 PM. [facility], CR, XRAY CHEST SINGLE VW, 12/07/2017, 07:31 PM. [facility], CR, XRAY CHEST SINGLE VW, 11/03/2017, 06:39 PM. INDICATIONS:J44.9 COPD FINDINGS: LUNGS/PLEURA:Hyperinflated lung nava chronic interstitial changes. Possible trace bilateral pleural effusions. Stable right upper lobe scarring/atelectasis. VASCULATURE:Unremarkable pulmonary vasculature. Calcified aortic arch. CARDIAC:Normal. No cardiac silhouette abnormality or cardiomegaly. MEDIASTINUM:Normal. No visible mass or adenopathy. BONES:Normal. No fracture or visible bony lesion. OTHER:Negative. CONCLUSION: 1. Possible trace bilateral pleural effusions. No focal consolidation. 2. Stable changes related to COPD/emphysema. Dictated by: Rubin Man MD on 09/24/2018 at 03:50 PM
== END | disposition home or self-care (01) ==
LOC: RAD 13:04
PROVIDERS: ATTEND Nurse Practitioner Family
DX: Z12.31 Encounter for screening mammogram for malignant neoplasm of breast (principal); J44.9 Chronic obstructive pulmonary disease, unspecified; I70.0 Atherosclerosis of aorta
CPT/HCPCS: 71046; 77067

== ENCOUNTER → 2019-02-12 | Outpatient (CLI) | payer MEDICARE ==
[~2019-02-12] MED LIST changes: +CYAN-26 PO; -CYAN10005 PO
--- NOTE | 2019-02-12 15:25 | DIREP ---
PROCEDURE:CT HEAD WITHOUT CONTRAST TECHNIQUE:Axial cuts were obtained through the head, without intravenous contrast material. The images were viewed at brain and bone settings. COMPARISON:[facility], CT, CT HEAD BRAIN W/O CONTRAST, 03/25/2017, 05:16 PM. INDICATIONS:E41.82 AMS FINDINGS: VENTRICLES:Normal. CEREBRUM:There is no evidence of intraparenchymal or extra-axial hemorrhage. There appears to be a small lacunar infarct in the right caudate nucleus which was present on 03/25/2017. Mild supratentorial involutional changes are noted. CEREBELLUM:Normal. BRAINSTEM:Normal. SKULL:Normal. SINUSES:Normal. OTHER:Negative. CONCLUSION: 1. No significant abnormality noted; no change demonstrated since 03/25/2017. Dictated by: Gibson Joe M.D. on 02/12/2019 at 03:22 PM
--- NOTE | 2019-02-12 16:55 | DIREP ---
PROCEDURE:XR ABDOMEN 2 VIEWS COMPARISON:[facility], CR, XRAY ABDOMEN 2VW, 08/12/2018, 03:04 PM. INDICATIONS:R19.7 DIARRHEA TECHNIQUE:Flat and upright views of the abdomen are provided. FINDINGS: BOWEL GAS PATTERN:Nonobstructive bowel gas pattern. CALCIFICATIONS:None significant. Calcifications in the right gluteal region may represent injection granulomas. Smaller calcifications are also seen on the left side. No organomegaly or urinary tract calcifications are seen. LUNG BASES:Clear. BONES:Normal. OTHER:Clips in the right upper quadrant. CONCLUSION:Nonobstructed bowel gas pattern. Stable findings as above. Dictated by: Jose Ramon Chicas MD on 02/12/2019 at 04:52 PM
== END | disposition home or self-care (01) ==
LOC: RAD 14:41
PROVIDERS: ATTEND Nurse Practitioner Family
DX: R41.82 Altered mental status, unspecified (principal); R19.7 Diarrhea, unspecified
CPT/HCPCS: 70450; 74019

== ENCOUNTER → 2019-02-18 | Outpatient (CLI) | payer MEDICARE | END | disposition home or self-care (01) | LOC: NPLAB 11:43 | PROVIDERS: ATTEND Internal Medicine | DX: D64.9 Anemia, unspecified (principal); R41.82 Altered mental status, unspecified | CPT/HCPCS: 82272 ==

== ENCOUNTER 2019-08-06 21:00 | Emergency (ER) | payer MEDICARE ==
[~2019-08-06] VITALS: Ht 162.6 cm; Wt 59.0 kg
[~2019-08-06 21:00] MED LIST changes: +MECL-95 PO; -MECL25TA3 PO
--- NOTE | 2019-08-06 21:17 | ER.PDOC ---
General Chief Complaint: Requesting Medical Care Stated Complaint: COUGH,FEVER Time seen by MD: 21:15 Source: patient Exam Limitations: no limitations History of Present Illness Initial Comments pt c/o fever and SOB; her family has been coming to her home and may have been exposed to COVID19 Timing/Duration: gradual Severity: mild Associated Symptoms: fever/chills (99.9), cough, productive cough, mild SOB Allergies: Coded Allergies: Sulfa (Sulfonamide Antibiotics) (Verified Allergy, Unknown, 06/29/15) morphine (Verified Allergy, Unknown, 06/29/15) Home Meds Active Scripts Levofloxacin (LEVAQUIN) 750 Mg Tablet, 500 MG PO DAILY, #5 Prov:AUGUSTO SAGASTUME MD 06/14/16 Prednisone (PREDNISONE) 20 Mg Tablet, 40 MG PO DAILY, #10 TABLET Prov:AUGUSTO SAGASTUME MD 06/14/16 Reported Medications Beclomethasone Dipropionate (QVAR) 8.7 Gm Aer.w.adap, 2 PUFF IH BID, #8.7 GRAM 3 Refills 12/07/17 Ferrous Sulfate (FERROUS SULFATE) 325 Mg Tablet, 325 MG PO Q48H, TABLET 12/07/17 Aspirin (ASPIR 81) 81 Mg Tablet.dr, 81 MG PO DAILY24 12/07/17 Folic Acid (FOLIC ACID) 1 Mg Tablet, 0.4 MG PO DAILY24, TABLET 12/07/17 Fluticasone Propionate (FLUTICASONE PROPIONATE) 16 Gm [place].susp, 16 GM NS DAILY 01/26/13 Benazepril Hcl (BENAZEPRIL HCL) 20 Mg Tablet, 20 MG PO DAILY 01/26/13 Pantoprazole Sodium (PROTONIX) 40 Mg Tablet.dr, 40 MG PO DAILY 01/26/13 Hydrocodone Bit/Acetaminophen (HYDROCODON-ACETAMINOPH 7.5-500) 1 Each Tablet, 1 EACH PO Q6HR 01/26/13 Alprazolam (ALPRAZOLAM) 0.25 Mg Tablet, 0.25 MG PO PRN 01/26/13 Albuterol Sulfate (ALBUTEROL SULFATE) 2.5 Mg/0.5 Ml Vial.neb, 2.5 MG IH Q6HR 01/26/13 Meclizine Hcl (MECLIZINE HCL) 25 Mg Tablet, 25 MG PO TID 01/26/13 Albuterol Sulfate (PROAIR HFA) 8.5 Gm Hfa.aer.ad, 8.5 GM IH PRN 01/26/13 Amlodipine Besylate (AMLODIPINE BESYLATE) 5 Mg Tablet, 5 MG PO DAILY 01/26/13 Dicyclomine Hcl (DICYCLOMINE HCL) 10 Mg Capsule, 10 MG PO BID 01/26/13 Ergocalciferol (Vitamin D2) (VITAMIN D) 400 Unit Tablet, 400 UNIT PO DAILY 01/26/13 Cyanocobalamin (Vitamin B-12) (VITAMIN B-12) 1,000 Mcg Tablet, 1000 MCG PO MONTHLY 01/26/13 Hydrochlorothiazide (HYDROCHLOROTHIAZIDE) 12.5 Mg Capsule, 12.5 MG PO DAILY PRN for edema 01/26/13 Constitutional: fever EENTM: no symptoms reported Respiratory: cough, shortness of breath Cardiovascular: no symptoms reported Musculoskeletal: no symptoms reported Skin: no symptoms reported Past Medical History Surgical History: back, cancer surgery, cholecystectomy, tonsillectomy, tubal Social History Drug Use: none Physical Exam General Appearance: alert, no distress Respiratory: no resp.distress (RA saturation is 94%), decreased air movement (bilateral bases) Abdomen: non-tender CVS: reg rate & rhythm Skin: color nml, no rash, warm/dry Extremities: nml ROM, no pedal edema NEURO/PSYCH: oriented x 3 Results/Orders Results/Orders Orders - MAR CABA DO Cbc With Auto Diff (08/06/19 21:18) Comprehensive Metabolic Panel (08/06/19 21:18) Creatine Kinase (08/06/19 21:18) Creatine Kinase Mb (08/06/19 21:18) Probnp B-Type Medication Care Manager (08/06/19 21:18) Troponin I (08/06/19 21:18) D-Dimer (08/06/19 21:18) PT (08/06/19 21:18) Partial Thromboplastin Time. (08/06/19 21:18) Blood Culture (08/06/19 21:18) Ekg-Routine (08/06/19 21:18) Xr Chest 1v (08/06/19 21:18) Influenza A&B (08/06/19 21:18) Strep Screen (08/06/19 21:18) C-Reactive Protein (08/06/19 21:18) Ferritin(Ml) (08/06/19 21:18) Lactate Dehydrogenase (08/06/19 21:18) Enoxaparin Sodium (Lovenox) (08/06/19 22:27) Cta Chest (08/06/19 22:27) Enoxaparin Sodium (Lovenox) (08/06/19 23:09) Lorazepam (Ativan) (08/06/19 23:25) Lorazepam (Ativan) (08/06/19 23:24) Novel Coronavirus 2019(Dshs) (08/06/19 23:43) Ceftriaxone Sodium (Rocephin) (08/06/19 23:58) Azithromycin (Zithromax) (08/06/19 23:58) Vital Signs Date Time Temp Pulse Resp B/P (MAP) Pulse Ox O2 Delivery O2 Flow Rate FiO2 08/06/19 21:51 99.4 92 18 133/67 (89) 94 Room Air 08/06/19 21:44 99.4 92 18 08/06/19 21:44 99.4 92 18 94 Administered Medications Medications (Trade) Dose Ordered Sig/Evelio Route PRN Reason Start Time Stop Time Status Last Admin Dose Admin Enoxaparin Sodium (Lovenox) 60 mg STAT STAT SQ 08/06/19 22:27 08/06/19 22:29 DC 08/06/19 23:23 60 MG Lorazepam (Ativan) 1 mg STAT STAT IV 08/06/19 23:25 08/06/19 23:26 DC 08/06/19 23:31 1 MG Laboratory Tests Test 08/06/19 21:30 08/06/19 21:34 Influenza Type A Antigen NEGATIVE (NEG) Influenza B Immunofluorescence NEGATIVE (NEG) Group A Streptococcus Screen NEGATIVE (NEGATIVE) White Blood Count 10.1 10^3/uL (4.5-11.0) Red Blood Count 3.37 10^6/uL (4.00-5.20) L Hemoglobin 10.7 g/dL (12.0-15.0) L Hematocrit 31.6 % (36.0-46.0) L Mean Corpuscular Volume 93.8 fL (78-100) Mean Corpuscular Hemoglobin 31.8 pg (26-34) Mean Corpuscular Hemoglobin Concent 33.9 g/dL (33-36.5) Red Cell Distribution Width 14.2 % (11.5-14.5) Platelet Count 249 10^3/uL (150-400) Mean Platelet Volume 9.3 fL (7.8-11.0) Neutrophils (%) (Auto) 76.8 % (41.0-85.0) Lymphocytes (%) (Auto) 15.0 % (24.0-44.0) L Monocytes (%) (Auto) 6.0 % (5.0-12.0) Neutrophils # (Auto) 7.8 10^3/uL (1.8-7.7) H Lymphocytes # (Auto) 1.52 10^3/uL1 (1.0-4.8) Monocytes # (Auto) 0.6 10^3/uL (0.3-0.8) Absolute Immature Granulocyte (auto 0.02 10^3 u/L (0-2) Absolute Eosinophils (auto) 0.2 10^3/uL (0.0-0.2) Immature Granulocytes % 0.20 % (0.00-0.50) Eosinophils % 1.7 % (0.0-5.0) Basophils % 0.3 % (0.0-0.2) H Basophils # 0.0 10^3/uL (0.0-0.1) Prothrombin Time 10.9 SEC (9.3-11.3) Prothrombin Time INR (Non-Therap) 1.1 Activated Partial Thromboplast Time 25.9 SEC (24.67-30.72) D-Dimer 1.77 mg/L (0.19-0.49) *H Sodium Level 136 mmol/L (132-145) Potassium Level 3.2 mmol/L (3.6-5.2) L Chloride Level 100.0 mmol/L (96-109) Carbon Dioxide Level 27.6 mmol/L (20.0-32) Anion Gap 11.6 Blood Urea Nitrogen 9 mg/dL (7-18) Creatinine 1.32 mg/dL (0.59-1.40) Estimated GFR () 47.2 (>/=60) Est GFR (CKD-EPI)(Non-Afr [place]) 39.0 (>/=60) BUN/Creatinine Ratio 6.0 Glucose Level 114 mg/dL (70-110) H Calcium Level 9.0 mg/dL (8.4-10.5) Ferritin 57 ng/mL (8-252) Total Bilirubin 0.9 mg/dL (0.2-1.0) Aspartate Amino Transferase (AST) 13 U/L (0-35) Alanine Aminotransferase (ALT) 6 U/L (12-78) L Alkaline Phosphatase 101 U/L (50-136) Lactate Dehydrogenase 140 U/L (81-234) Total Creatine Kinase 200 U/L (26-192) H Creatine Kinase MB 1.5 ng/mL (0.5-3.6) Troponin I < 0.02 ng/mL (0.00-0.05) C-Reactive Protein 5.87 mg/dL (0.00-5.00) H Pro-B-Type Natriuretic Peptide 524 pg/mL (0-450) H Total Protein 7.0 g/dL (6.4-8.2) Albumin 3.4 g/dL (3.4-5.0) Globulin 3.6 Progress Progress ddimer elevated; CRP elevated; WBC 10 EKG/XRAY/CT/US EKG Comments: sinus tachycardia XRAY: chest (LLL and lingular infiltrates) CT Comments: CT sees no PE and NO pneumonia Consult/PCP Time Consult/PCP Called: 23:36 Consult/PCP: Lola @ [facility] Reason/Comments: KIMANI# [id number] Departure Time of Disposition: 00:25 Disposition: 01 HOME, SELF-CARE Impression: Primary Impression: COPD (chronic obstructive pulmonary disease) Additional Impression: Suspected COVID-19 virus infection Condition: Stable Patient Instructions: Fever, Viral Syndrome Referrals: [facility] TEAM COORDINATOR (PCP) PRIMARY CARE PROVIDER Additional Instructions: Someone will call you with your COVID19 results. Sequester at home. Family must wear masks when visiting. Return to ER if you have difficulty breathing or any other concerns. Duration or Time Spent with Pa: 25 min Problem Qualifiers Primary Impression: COPD (chronic obstructive pulmonary disease) COPD type: COPD with acute lower respiratory infection Qualified Codes: J44.0 - Chronic obstructive pulmonary disease with (acute) lower respiratory infection MAR CABA DO Aug 06, 2019 21:17
[2019-08-06 21:44] VITALS: BP 133/67
[2019-08-06 21:44] LABS: BASOPHIL % 0.3 % (0.0-0.2); EOSINOPHIL # 0.2 10^3/uL (0.0-0.2); EOSINOPHIL % 1.7 % (0.0-5.0); LYMPHOCYTES # 1.52 10^3/uL1 (1.0-4.8); MEAN CORP HGB 31.8 pg (26-34); MONOCYTES # 0.6 10^3/uL (0.3-0.8); NEUTROPHIL # 7.8 10^3/uL (1.8-7.7); NEUTROPHILS % 76.8 % (41.0-85.0); PLATELET COUNT 249 10^3/uL (150-400); RED CELL DISTRIBUTION WIDTH 14.2 % (11.5-14.5)
[2019-08-06 21:51] VITALS: BP 133/67
--- NOTE | 2019-08-06 22:01 | DIREP ---
PROCEDURE:CHEST 1 VIEW COMPARISON:None. INDICATIONS:cough FINDINGS: LUNGS/PLEURA:COPD with chronic changes throughout both lungs and with consolidation involving the left lower lung field with silhouetting of the left heart margin. No effusions. VASCULATURE:Normal. Unremarkable pulmonary vasculature. CARDIAC:Normal. No cardiac silhouette abnormality or cardiomegaly. MEDIASTINUM:Normal. No visible mass or adenopathy. BONES:Normal. No fracture or visible bony lesion. OTHER:Alveolar infiltrate in the left lower lung field consistent with pneumonia involving the lingula and the left lower lobe CONCLUSION: 1. COPD and acute left lower lobe and lingular pneumonia. Dictated by: Kraig Marques M.D. on 08/06/2019 at 09:59 PM
[2019-08-06 22:10] LABS: ALANINE AMINOTRANSFERASE(ML) 6 U/L (12-78); ALKALINE PHOSPHATASE 101 U/L (50-136); ASPARTATE AMINO TRANSFERASE 13 U/L (0-35); CARBON DIOXIDE 27.6 mmol/L (20.0-32); GLUCOSE 114 mg/dL (70-110)
[2019-08-06] MEDS ORDERED: LOVENOX SQ STA (22:27)
[2019-08-06] MEDS ORDERED: LOVENOX SQ ONE (23:09)
--- NOTE | 2019-08-06 23:20 | NUR ---
CT SCAN PATIENT TO CT SCAN VIA WHEELCHAIR WITH TIFFANY BARBOUR
[2019-08-06] MEDS ORDERED: ATIVAN ONE (23:24)
[2019-08-06] MEDS ORDERED: ATIVAN IV STA (23:25)
--- NOTE | 2019-08-06 23:30 | NUR ---
ANGLE FROM CT CALLED REGARDING PATIENT'S ANXIETY DELAYING CT. DR. CABA ORDERED MEDICATION AND THIS NURSE WENT TO CT TO ADMINISTER 1 MG ATIVAN ORDERED. PATIENT TOLERATED WELL.
--- NOTE | 2019-08-06 23:36 | NUR ---
DR CABA ON PHONE WITH VERA AT [facility]. PATIENT WILL BE TESTED FOR COVID-19, [id number]
[2019-08-06] MEDS ORDERED: ZITHROMAX PO STA (23:58)
[2019-08-06] MEDS ORDERED: ROCEPHIN 1 GM in NS 100ML 100 ML IV STA (23:58)
--- NOTE | 2019-08-06 23:59 | PCM.EKG ---
[facility] Test Date: 2019-08-06 Test Time: 23:44:09 Pat Name: RIDDHI PHILLIPS Department: Room: Gender: F [employer] Hel[employer]: TG : [id number] Requested By: MAR RENO Order Number: [id number] Reading MD: Brittnee Reno Measurements Intervals [place] Rate: 107 P: 85 KS: 186 QRS: 72 QRSD: 102 T: 42 QT: 349 QTc: 466 Interpretive Statements Sinus tachycardia Ventricular premature complex Right atrial enlargement Borderline repolarization abnormality Compared to ECG 12/07/2017 21:49:07 Ventricular premature complex(es) now present Atrial abnormality now present Sinus rhythm no longer present Atrial premature complex(es) no longer present Electronically Signed On 08-14-2019 19:29:53 CDT by Brittnee Reno Please click the below link to view image of tracing.
--- NOTE | 2019-08-07 | DIREP ---
PROCEDURE:CT PULMONARY ANGIOGRAM TECHNIQUE:Following the intravenous administration of contrast material, axial cuts were obtained through the chest. Sagittal and coronal MIP post-processing reconstructions are provided. Satisfactory pulmonary arterial contrast opacification was achieved. The images were viewed at lung and soft tissue settings. COMPARISON:[facility], CT, CT-CHEST W CONTRAST, 03/26/2012, 01:28 PM. [facility], CT, CT ABD/PELVIS W/WO, 08/15/2018, 08:59 AM. [facility], CR, XRAY CHEST 2 VWS, 09/24/2018, 02:34 PM. [facility], CR, XRAY CHEST SINGLE VW, 08/06/2019, 09:37 PM. INDICATIONS:suspect PE elevated d-dimer FINDINGS: PULMONARY ARTERIES:Patent. No pulmonary embolus. LUNGS/PLEURA:Moderate to severe centrilobular emphysema, most prominent in the upper lobes. Mild biapical pleuroparenchymal scarring. Minimal linear scarring in the anterior/inferior right lower lobe. The lungs are otherwise clear. No focal consolidation or suspicious pulmonary nodule. No pleural effusion or pneumothorax. CARDIAC:Heart size is normal. Three-vessel coronary artery calcifications, most prominent in the LAD and RCA. No pericardial effusion. THORACIC AORTA:Scattered calcified noncalcified plaque again demonstrated. Mild aneurysmal dilatation of the distal descending thoracic aorta, measuring 3.7 x 3.5 cm (image 46, series [id number] and image 63, series 9). This is increased from 3.5 x 3.2 cm on the prior abdominal CT. Stable small amount of peripheral thrombus in the posterior aspect of the aneurysmal segment. No dissection. MEDIASTINUM:No enlarged mediastinal or hilar lymph nodes. Small hiatal hernia. THYROID:Normal. LIMITED ABDOMEN:Cholecystectomy. No biliary ductal dilatation. Small superior pole left renal cyst is again demonstrated. Stable vascular calcifications. Otherwise unremarkable. BONES:Osteopenia. Stable mild degenerative changes involving the thoracic spine. No acute abnormality or suspicious osseous lesion. OTHER:No additional findings. CONCLUSION: 1. No pulmonary embolus. 2. Moderate to severe centrilobular emphysema, most prominent in the upper lobes, with mild biapical pleuroparenchymal scarring. Minimal scarring in the anterior right lower lobe. The lungs are otherwise clear. Sign three-vessel coronary artery calcifications, most prominent in the LAD and RCA. 3. Slight increase in size of a mild inferior thoracic aortic aneurysm, measuring 3.7 x 3.5 cm. 4. Additional chronic findings, as above. Dictated by: Jimmie Wynne MD on 08/06/2019 at 11:50 PM
== END 2019-08-07 00:40 | disposition home or self-care (01) ==
LOC: ER 21:00
DX: J44.9 Chronic obstructive pulmonary disease, unspecified (principal); Z20.828 Contact with and (suspected) exposure to other viral communicable diseases; B34.9 Viral infection, unspecified; Z90.89 Acquired absence of other organs; Z88.1 Allergy status to other antibiotic agents; Z88.5 Allergy status to narcotic agent; Z79.82 Long term (current) use of aspirin; Z79.51 Long term (current) use of inhaled steroids; Z79.899 Other long term (current) drug therapy; Z88.2 Allergy status to sulfonamides; Z90.49 Acquired absence of other specified parts of digestive tract
CPT/HCPCS: 36415; 71045; 71275; 80053; 82550; 82553; 82728; 83615; 83880; 84484; 85025; 85379; 85610; 85730; 86140; 87040 ×2; 87070; 87077; 87186; 87635; 87804 ×2; 87880; 93005; 96372; 96374; 99285; J0696; J1650; J2060; J7050; Q9965

== ENCOUNTER → 2020-02-15 | Outpatient (CLI) | payer MEDICARE ==
[~2020-02-15] MED LIST changes: +AMLO-169 PO; -AMLO5TAB10 PO; -ASPI-484 PO; +ASPI-485 PO
[2020-02-15 18:53] LABS: MEAN CORP HGB 31.6 pg (26-34); RED CELL DISTRIBUTION WIDTH 13.3 % (11.5-14.5)
[2020-02-15 19:22] LABS: CALCIUM 9.6 mg/dL (8.4-10.5); CARBON DIOXIDE 27.8 mmol/L (20.0-32)
== END | disposition home or self-care (01) ==
LOC: NPLAB 17:00
PROVIDERS: ATTEND Internal Medicine
DX: I10 Essential (primary) hypertension (principal); E78.5 Hyperlipidemia, unspecified; Z79.899 Other long term (current) drug therapy
CPT/HCPCS: 80048; 80061; 80076; 82150; 82306; 82607; 83690; 84439; 84443; 85027